=== PATIENT | female | born 1960 | race American Indian/Alaskan Native ===

== ENCOUNTER 2018-04-26 12:11 | Emergency (ER) | payer BC, OTHER ==
[2018-04-26 12:29] VITALS: BP 134/84
--- NOTE | 2018-04-26 14:57 | Emergency Department Report ---
ED Female HPI - General Chief complaint: Vaginal Bleeding Stated complaint: HEAVY MENSTRUAL BLEEDING Time Seen by Provider: 04/26/18 14:42 Source: patient, family Mode of arrival: Ambulatory Limitations: No Limitations - History of Present Illness Initial comments: This is a 58-year-old female complaining of vaginal bleeding since April 03. She states that she is going through us Cipro plus tampon every hour. Patient is still menstruating and she said that she was 11 months without menstruation and then in February he came back and then started again April 03. She said when it stopped and although she went on vacation with her and they had lots of sex. So she still has the ability to get . She is followed by Dr. Guthrie who saw her in the and scheduled her for ultrasound and a biopsy of her endometrium in 05/24/2018. She says she called her today and she told her to come to the emergency room due to heavy menstrual bleeding. Patient having some abdominal cramping to her pelvic area but she said 3/10 and intermittent. She says she is also passing some clots. Denies any dizziness or feeling off fainted. Denies any nausea or vomiting. Denies any back pain or any uterine or burning, frequency or urgency. Patient does have a history of fibroids and she has a history of myomectomy and she said her fibroids came back. She had a history of endometriosis since that she has had several endometrial biopsies in the past. Denies any history of acute blood loss due to heavy vaginal bleeding and period. Complaint: vaginal bleeding Onset/Timin -: days(s) Location: suprapubic Radiation: non-radiating Severity: mild Severity scale (0 -10): 3 Quality: cramping Consistency: intermittent Improves with: none Worsens with: none Are you Now?: No Last Menstrual Period: 04/03/18 EDC: 01/08/19 Associated Symptoms: vaginal bleeding, abdominal pain (abdominal cramping). denies: vaginal discharge, nausea/vomiting, fever/chills, headaches, loss of appetite, dysuria, hematuria, rash, seizure, shortness of breath, syncope, weakness - Related Data Home Medications Medication Instructions Recorded Confirmed Last Taken Progesterone, Micronized 200 mg PO QPM 05/28/13 05/28/13 05/21/13 [Prometrium] Previous Rx's Medication Instructions Recorded Last Taken Type Cyclobenzaprine [Flexeril] 10 mg PO TID PRN #14 tablet 05/28/13 Unknown Rx Ibuprofen [Motrin] 800 mg PO TID PRN #14 tablet 05/28/13 Unknown Rx Naproxen 500 mg PO Q12H #16 tablet 04/26/18 Unknown Rx Allergies Allergy/AdvReac Type Severity Reaction Status Date / Time No Known Allergies Allergy Unverified 05/28/13 04:13 ED Review of Systems ROS: Stated complaint: HEAVY MENSTRUAL BLEEDING Other details as noted in HPI Constitutional: denies: chills, fever Eyes: denies: eye pain, eye discharge, vision change ENT: denies: ear pain, throat pain, congestion Respiratory: denies: cough, shortness of breath, SOB with exertion, SOB at rest , stridor, wheezing Cardiovascular: denies: chest pain, palpitations, dyspnea on exertion, edema, syncope Gastrointestinal: denies: abdominal pain, nausea, diarrhea Genitourinary: abnormal menses. denies: urgency, dysuria, frequency, hematuria , discharge, dyspareunia Musculoskeletal: denies: back pain, joint swelling, arthralgia, myalgia Skin: denies: rash, lesions Neurological: denies: headache, weakness, paresthesias Hematological/Lymphatic: denies: easy bleeding ED Past Medical Hx - Past Medical History Previous Medical History?: Yes Additional medical history: fibroids. carpal tunnel - Surgical History Past Surgical History?: Yes Additional Surgical History: myomectomy - Family History Family history: hypertension - Social History Smoking Status: Never Smoker Substance Use Type: None - Medications Home Medications: Home Medications Medication Instructions Recorded Confirmed Last Taken Type Cyclobenzaprine [Flexeril] 10 mg PO TID PRN #14 tablet 05/28/13 Unknown Rx Ibuprofen [Motrin] 800 mg PO TID PRN #14 tablet 05/28/13 Unknown Rx Progesterone, Micronized 200 mg PO QPM 05/28/13 05/28/13 05/21/13 History [Prometrium] Naproxen 500 mg PO Q12H #16 tablet 04/26/18 Unknown Rx ED Physical Exam - General Limitations: No Limitations General appearance: alert, in no apparent distress - Head Head exam: Present: atraumatic, normocephalic, normal inspection - Eye Eye exam: Present: normal appearance, PERRL, EOMI Pupils: Present: normal accommodation - ENT ENT exam: Present: normal exam, normal orophraynx, mucous membranes moist, TM's normal bilaterally, normal external ear exam - Neck Neck exam: Present: normal inspection, full ROM. Absent: tenderness, lymphadenopathy - Respiratory Respiratory exam: Present: normal lung sounds bilaterally. Absent: respiratory distress, chest wall tenderness - Cardiovascular Cardiovascular Exam: Present: regular rate, normal rhythm, normal heart sounds. Absent: systolic murmur, diastolic murmur - GI/Abdominal GI/Abdominal exam: Present: soft, normal bowel sounds. Absent: distended, tenderness, guarding, rebound, rigid, organomegaly, mass, bruit, pulsatile mass , hernia - Extremities Exam Extremities exam: Present: normal inspection, full ROM, normal capillary refill , other (No cce. + 2 pulses in all extremities, no neurovascular compromise). Absent: tenderness, pedal edema, joint swelling, calf tenderness - Back Exam Back exam: Present: normal inspection, full ROM, other (ambulates without any difficulties). Absent: tenderness, CVA tenderness (R), CVA tenderness (L), muscle spasm, paraspinal tenderness, vertebral tenderness, rash noted - Neurological Exam Neurological exam: Present: alert, oriented X3, normal gait, reflexes normal. Absent: motor sensory deficit - Psychiatric Psychiatric exam: Present: normal affect, normal mood - Skin Skin exam: Present: warm, dry, intact, normal color. Absent: rash ED Course Vital Signs 04/26/18 12:24 Temperature 98.5 F Pulse Rate 75 Respiratory 16 Rate Blood Pressure 134/84 O2 Sat by Pulse 100 Oximetry - Reevaluation(s) Reevaluation #1: 04/26/18 16:03 Patient BMP is stable test is negative. Awaiting other lab work. She is awaiting an ultrasound pelvic complaints. Abdominal is nontender at present. Patient has no nausea and she is stable Reevaluation #2: 04/26/18 18:47 Patient states educated on preliminary ultrasound report. No acute findings ED Medical Decision Making - Lab Data Result diagrams: 04/26/18 15:08 04/26/18 15:08 Lab Results 04/26/18 04/26/18 04/26/18 Range/Units 15:08 15:08 15:08 WBC 4.9 (4.5-11.0) K/mm3 RBC 3.98 (3.65-5.03) M/mm3 Hgb 12.1 (10.1-14.3) gm/dl Hct 36.0 (30.3-42.9) % MCV 90 (79-97) fl MCH 30 (28-32) pg MCHC 34 (30-34) % RDW 15.0 (13.2-15.2) % Plt Count 200 (140-440) K/mm3 Lymph % (Auto) 28.5 (13.4-35.0) % Schleicher % (Auto) 7.1 (0.0-7.3) % Eos % (Auto) 1.4 (0.0-4.3) % Baso % (Auto) 0.5 (0.0-1.8) % Lymph # 1.4 (1.2-5.4) K/mm3 Schleicher # 0.3 (0.0-0.8) K/mm3 Eos # 0.1 (0.0-0.4) K/mm3 Baso # 0.0 (0.0-0.1) K/mm3 Seg Neutrophils % 62.5 (40.0-70.0) % Seg Neutrophils # 3.0 (1.8-7.7) K/mm3 Sodium 141 (137-145) mmol/L Potassium 3.6 (3.6-5.0) mmol/L Chloride 103.0 (98-107) mmol/L Carbon Dioxide 29 (22-30) mmol/L Anion Gap 13 mmol/L BUN 5 L (7-17) mg/dL Creatinine 0.7 (0.7-1.2) mg/dL Estimated GFR > 60 ml/min BUN/Creatinine Ratio 7 % Glucose 92 (65-100) mg/dL Calcium 9.3 (8.4-10.2) mg/dL HCG, Qual Negative (Negative) - Radiology Data Radiology results: report reviewed interpreted by me: Preliminary ultrasound reports. Exam was limited. Patient has lots of small fibroids and lower segments vascular mass abnormal versus benign. 4.7 cm. Ovaries are normal. Endometrial thickness is 12 mm. - Medical Decision Making This is a 58-year-old female here reports that she is having heavy vaginal bleeding with minimal abdominal cramping and she has been followed by Dr. Guthrie will plan to do endometrial biopsy on 05/24/2018. Diagnostics: Preliminary pelvic ultrasound complete and preliminary report shows 6.1 x 5 x 4.7 cm vascular mass benign versus abnormal. She also have lots of small fibroids. Ovaries are normal and endometrial lining is normal. Final report to be read by radiologist. CBC and BMP is stable and urinalysis stable, test is negative Assessment/plan Dysfunctional uterine bleeding -I discussed ultrasound result with patient and she has an appointment with Dr. Guthrie but I told her to call Dr. Guthrie tomorrow to let her know that she had ultrasound and to see if she could look at it and see if she needs to come in earlier. Started on naproxen Abdominal cramping-cent pelvic cramping in his minimal and she is not having any at present. 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 She will call Dr. Guthrie in the morning to let her know that she had ultrasound done. Patient has biopsy scheduled on 05/24/[address] Guthrie. She remained stable throughout ED course. She was discharged home with her and with prescription for naproxen Critical care attestation.: If time is entered above; I have spent that time in minutes in the direct care of this critically ill patient, excluding procedure time. ED Disposition Clinical Impression: Dysfunctional uterine bleeding, Pelvic pain, Uterine mass Disposition: DC-01 TO HOME OR SELFCARE Is pt being admited?: No Does the pt Need Aspirin: No Condition: Stable Instructions: Dysfunctional Uterine Bleeding (ED), Uterine Fibroids (ED), Abdominal Pain (ED) Additional Instructions: Please call Dr. Guthrie office in the morning to schedule an appointment and let her know that he had an ultrasound done today in the hospital. Take naproxen as discussed Increase her fluid intake If he develops, dizziness, shortness of breath, chest pain and increased vaginal bleeding that is not controlled, please return to emergency room Prescriptions: Naproxen 500 mg PO Q12H #16 tablet Referrals: CARMEL GUTHRIE MD [Staff Physician] - 04/27/18 PRIMARY CARE, [Primary Care Provider] - 04/27/18 Forms: Work/School Release Form(ED)
[2018-04-26 15:45] LABS: BUN/Creatinine Ratio 7; Blood Urea Nitrogen 5 mg/dL (7-17); Calcium 9.3 mg/dL (8.4-10.2); Hemolysis Index 1
[2018-04-26 15:58] LABS: Basophils % (Auto) 0.5 % (0.0-1.8); Eosinophils # (Auto) 0.1 K/mm3 (0.0-0.4); Eosinophils % (Auto) 1.4 % (0.0-4.3); Hemoglobin 12.1 gm/dl (10.1-14.3); Lymphocytes # (Auto) 1.4 K/mm3 (1.2-5.4); Lymphocytes % (Auto) 28.5 % (13.4-35.0); Mean Corpuscular HGB Conc 34 % (30-34); Mean Corpuscular Hemoglobin 30 pg (28-32); Mean Corpuscular Volume 90 fl (79-97); Monocytes # (Auto) 0.3 K/mm3 (0.0-0.8); Monocytes % (Auto) 7.1 % (0.0-7.3); Platelet Count 200 K/mm3 (140-440); Red Blood Count 3.98 M/mm3 (3.65-5.03)
[2018-04-26 22:08] LABS: Bilirubin,Urine NEG (Negative); Blood,Urine MOD (Negative); Color,Urine Yellow (Yellow); Mucus,Urine FEW /HPF; Protein,Urine <15 mg/dL mg/dL (Negative); Urobilinogen,Urine < 2.0 mg/dL (<2.0)
--- NOTE | 2018-04-27 08:12 | Ultrasound Report ---
ULTRASOUND PELVIC COMPLETE HISTORY: Heavy vaginal bleeding, mild pelvic cramping for month. COMPARISON: None. TECHNIQUE: Transabdominal ultrasound with color doppler interrogation. FINDINGS: Uterus: The uterus is anteverted. The uterus is mildly enlarged measuring 12 x 5 x 6 cm. A large exophytic fibroid projects laterally from the right inferior uterine wall. The fibroid measures 6.1 x 5.0 x 4.7 cm. This fibroid appears predominantly solid, no calcifications and trace internal flow. There are a few additional subcentimeter intramural fibroids in the anterior and posterior melendrez. No large submucosal fibroid. Endometrium: 12 mm. Right ovary: 2.5 x 2.0 x 2.6 cm. No focal abnormality. Left ovary: 3.2 x 1.3 x 2.5 cm. No focal abnormality. No pelvic fluid or mass is identified. Normal color doppler interrogation. IMPRESSION: Uterine fibroid disease as described.
== END 2018-04-26 19:08 | disposition home or self-care (01) ==
LOC: ED 12:11
DX: N93.8 Other specified abnormal uterine and vaginal bleeding (principal); R10.2 Pelvic and perineal pain; R19.09 Other intra-abdominal and pelvic swelling, mass and lump
CPT/HCPCS: 36415; 76856; 80048; 81001; 84703; 85025

== ENCOUNTER 2018-09-08 05:51 | Observation (INO) | payer BC ==
[2018-08-16 12:35] LABS: Basophils # (Auto) 0.1 K/mm3 (0.0-0.1); Basophils % (Auto) 1.2 % (0.0-1.8); Eosinophils % (Auto) 0.5 % (0.0-4.3); Hematocrit 33.6 % (30.3-42.9); Hemoglobin 10.4 gm/dl (10.1-14.3); Lymphocytes # (Auto) 1.2 K/mm3 (1.2-5.4); Lymphocytes % (Auto) 23.7 % (13.4-35.0); Mean Corpuscular HGB Conc 31 % (30-34); Mean Corpuscular Volume 76 fl (79-97); Monocytes # (Auto) 0.3 K/mm3 (0.0-0.8); Monocytes % (Auto) 5.6 % (0.0-7.3); Platelet Count 321 K/mm3 (140-440); Red Blood Count 4.42 M/mm3 (3.65-5.03); Red Cell Distribution Width 17.6 % (13.2-15.2)
--- NOTE | 2018-08-21 12:33 | History and Physical Report ---
History of Present Illness Date of examination: 08/16/18 History of present illness: This is a 58 years old female who presents with menstrual disorder. No period for 1year. Then 03/03/18 she had light bleeding like a regualr cycle [id number]. Has spotting again 04/03/2018 that was intermittently heavy. She complains of irregular menses and heavy bleeding. She complains of history of fibroids, but denies dysmenorrhea, history of ovarian cysts, history of thyroid disease, history of PCOS, history of bleeding disorder, lightheadedness, fatigue and cramping. States she had an US ~2years ago by Dr. Aileen Chery that reveals fibroids and ovarian cyst. She had an EMB 04/2018 that revealed:POLYPOID FRAGMENTS OF PROLIFERATIVE TYPE ENDOMETRIUM, SUGGESTIVE OF BENIGN ENDOMETRIAL POLYPS.- NO HYPERPLASIA OR CARCINOMA. Pap smear was negative for HPV. TVUS showed a right complexed ovarian cyst stable since 2012. She's had persistent intermittent bleeding and desires to proceed with hysterectomy with removal of both tubes and ovaries. 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 Ángel Perez (R) ovarian biopsy ~29 years ago Abnormal PAP: positive Infection History HIV Risk Eval: no Hx of STD: None Active Medications (reviewed today): IBUPROFEN 800 MG ORAL TABLET (IBUPROFEN) 1 po TID (PRN) OXYCODONE-ACETAMINOPHEN 5-325 MG ORAL TABLET (OXYCODONE-ACETAMINOPHEN) 1-2po q6h Current Allergies (reviewed today): No known allergies Past Medical History: Mitral valve prolapse Past Surgical History: Myomectomy hysteroscopic (2013) Tubal Ligation (1996) Breast Surgery: (2015) (L), mass removed (R) Dr. Ángel Perez (R) ovarian biopsy ~29 years ago Social History: Reviewed history from 04/20/2018 and no changes required: Patient is Smoking History: Patient is a former smoker. Risk Factors: Smoked Tobacco Use: Former smoker Smokeless Tobacco Use: Former Passive smoke exposure: no Drug use: no HIV high-risk behavior: no Seatbelt use: 100 % Mammogram History: Date of Last Mammogram: 08/16/2018 Results: 2017 PAP Smear History: Date of Last PAP Smear: 04/20/2018 Physical Exam Appearance: well developed, well nourished, no acute distress Other Exams Lungs: no rales, rhonchi, or wheezes Heart: S1, S2, no murmur, rub, or gallop Abdomen: soft, non-tender Abdomen: soft, non-tender Genitourinary Exam Vulva: normal, no lesions or discharge Urethral meatus: normal size and location, no lesions or discharge Urethra: no discharge Bladder: no cystocele Vagina: normal appearance, no discharge, lesions. No evidence of cystocele or rectocele. Cervix: normal appearance, no lesions, no discharge Uterus: fixed, enlarged, 10-12 weeks, deviated to left Adnexa: no masses or tenderness Rectal exam: hemorrhoids Impression & Recommendations: Problem # 1: Postmenopausal Bleeding (ICD-627.1) (CPC60-F20.0) Diagnosis explained to patient. Discussed with patient various medical, surgical and radiological therapies common for treatment including, but not limited to, myomectomy, hysterectomy and uterine artery embolization. Discussed risks and benefits of laparotomy, laparoscopy, vaginal and robotic assisted approaches for hysterectomies. Patient desires definitive treatment in the form of robot as sisted laparoscopic total hysterectomy. The risks and alternatives for this surgery were reviewed with the patient. She was informed of the risks of the surgery including, but not limited to, pain, infection, bleeding possibly heavy enough to require a blood transfusion with associated risks of infections (hepatitis and HIV) and transfusion reactions, possible damage to bowel, bladder or ureter(s). Patient understands that this surgery with make her sterile. Indications to abort a robotic/laparoscopic procedure and perform an open procedure were explained. Patient understands if her ovaries are removed she will become menopausal. Patient advised the small risks of spreading of malignancy if morcellation is required during the surgery patient understands and approves performing if necessary. Questions answered. Consent reviewed and signed The patient was instructed/informed the following: The normal length of hospital stay for this procedure. Nothing to eat or drink after midnight the evening prior to surgery. Clear liquids the day before surgery. Pre-op instruction sheets given. Wound care instructions given. Problem # 2: Ovarian mass (ICD-625.8) (TQE81-C12.89) Small chance of malignancy discussed. She was informed she may require further surgery should malignancy be found on the pathology report. Problem # 3: Fibroids of uterus; Intramural (ICD-218.1) (BWA83-D69.1) Diagnosis explained to patient . Questions answered. Discussed with patient various medical, surgical and radioloigal therapies common for treatment: Hormonal/medical therapy, fibroid embolization, removal of fibroids or hysterectomy Medications Added to Medication List This Visit: 1) Ibuprofen 800 Mg Oral Tablet (Ibuprofen) .... 1 po tid (prn) 2) Oxycodone-acetaminophen 5-325 Mg Oral Tablet (Oxycodone-acetaminophen) .... 1-2po q6h Prescriptions: IBUPROFEN 800 MG ORAL TABLET (IBUPROFEN) 1 po TID (PRN) #30 x 1 Entered and Authorized by: Lucero Guthrie MD Method used: Print then Give to Patient RxID: [id number] OXYCODONE-ACETAMINOPHEN 5-325 MG ORAL TABLET (OXYCODONE-ACETAMINOPHEN) 1-2po q6h #15 Tablet x 0 Entered and Authorized by: Lucero Guthrie MD Method used: Print then Give to Patient RxID: [id number] Medications and Allergies Allergies Allergy/AdvReac Type Severity Reaction Status Date / Time No Known Allergies Allergy Unverified 08/15/18 13:10 Home Medications Medication Instructions Recorded Confirmed Last Taken Type Norgestimate-Ethinyl Estradiol 1 each PO DAILY 08/15/18 08/15/18 Unknown History [Auq-Uq-Weahudgl Tablet] Active Meds: Active Medications Cefazolin Sodium (Ancef/Sterile Water 2 Gm/20 Ml) 2 gm in 20 mls @ 80 mls/hr IV PREOP NR; Protocol Stop: 08/22/18 23:59 Exam Vital Signs Temp Pulse Resp BP Pulse Ox 99.2 F 73 18 150/96 99 08/16/18 12:00 08/16/18 12:00 08/16/18 12:00 08/16/18 12:00 08/16/18 12:00 Results - Labs 08/16/18 12:05 Assessment and Plan - Patient Problems (1) Post-menopausal bleeding Status: Acute (2) Ovarian mass Status: Acute (3) Fibroid Status: Acute
[~2018-09-08 05:51] MED LIST: ANCEF/STERILE WATER 2 GM/20 ML 2 GM/20 ML SYRINGE IV NR
[2018-09-08] MEDS ORDERED: NEURONTIN PO NR (06:00)
[2018-09-08] MEDS ORDERED: VERSED IV NR (06:00)
[2018-09-08] MEDS ORDERED: LACTATED RINGERS 1,000 ML IV SCH (06:00)
[2018-09-08] MEDS ORDERED: TRANSDERM-SCOP TD NR (06:00)
[2018-09-08] MEDS ORDERED: SUBLIMAZE IV PRN (06:00)
[2018-09-08] MEDS ORDERED: NEOSPORIN GU IR ONE ×2 (07:15→08:55)
[2018-09-08] MEDS ORDERED: ANCEF/STERILE WATER 2 GM/20 ML IV NR (07:15)
[2018-09-08] MEDS ORDERED: MARCAINE 0.25% INFILTRATI ONE (07:18)
[2018-09-08] MEDS ORDERED: XYLOCAINE 1% 20 mL ONE (07:18)
[2018-09-08 07:19] LABS: Hematocrit 34.5 % (30.3-42.9); Mean Corpuscular HGB Conc 32 % (30-34); Mean Corpuscular Volume 74 fl (79-97); Platelet Count 235 K/mm3 (140-440); Red Blood Count 4.66 M/mm3 (3.65-5.03); Red Cell Distribution Width 19.1 % (13.2-15.2)
[2018-09-08] MEDS ORDERED: ZEMURON IV ONE (07:28)
[2018-09-08] MEDS ORDERED: DIPRIVAN 10 MG/ML IV ONE (07:28)
[2018-09-08] MEDS ORDERED: DILAUDID ONE (07:28)
[2018-09-08] MEDS ORDERED: XYLOCAINE MPF 2% ONE (07:29)
[2018-09-08] MEDS ORDERED: ANCEF/STERILE WATER 2 GM/20 ML 2 GM/20 ML SYRINGE IV ONE (07:54)
[2018-09-08] MEDS ORDERED: DILAUDID IV PRN ×2 (08:03→11:51)
--- NOTE | 2018-09-08 08:06 | Anesthesia Consultation ---
Anesthesia Consult and Med Hx Date of service: 09/08/18 - Airway Anesthetic Teeth Evaluation: Good ROM Head & Neck: Adequate Mental/Hyoid Distance: Adequate Mallampati Class: Class II Intubation Access Assessment: Probably Good - Pulmonary Exam CTA: Yes - Cardiac Exam Cardiac Exam: RRR - Pre-Operative Health Status ASA Pre-Surgery Classification: ASA2 Proposed Anesthetic Plan: General Nerve Block: TAP - Pulmonary Hx Smoking: No Hx Asthma: No Hx Respiratory Symptoms: No Hx Sleep Apnea: No - Cardiovascular System Hx Hypertension: No Hx Heart Attack/AMI: No Hx Percutaneous Transluminal Coronary Angioplasty (PTCA): No Hx Cardia Arrhythmia: Yes (hx palpitations) - Central Nervous System Hx Seizures: No CVA: No - Gastrointestinal Hx Gastroesophageal Reflux Disease: Yes (asymptomatic today) - Endocrine Hx Renal Disease: No Hx Liver Disease: No Hx Insulin Dependent Diabetes: No Hx Non-Insulin Dependent Diabetes: No Hx Thyroid Disease: No - Hematic Hx Anemia: Yes (no hx transfusions) - Other Systems Hx Obesity: No - Additional Comments Anesthesia Medical History Comments: Hx PONV with prior anesthetics.
--- NOTE | 2018-09-08 08:07 | Anesthesia Day of Surgery ---
Anesthesia Day of Surgery - Day of Surgery Patient Examined: Yes Patient H&P Reviewed: Yes Patient is NPO: Yes
[2018-09-08] MEDS ORDERED: THROMBIN (BOVINE) TP ONE ×2 (08:33→08:57)
[2018-09-08] MEDS ORDERED: CALCIUM CHLORIDE IV ONE ×2 (08:33→08:56)
[2018-09-08] MEDS ORDERED: NACL 0.9% IR ONE (08:56)
[2018-09-08] MEDS ORDERED: WATER FOR IRRIG STERILE IR ONE (08:57)
[2018-09-08] MEDS ORDERED: METHYLENE BLUE IV ONE (10:24)
[2018-09-08] MEDS ORDERED: METHYLENE BLUE ONE (10:26)
[2018-09-08] MEDS ORDERED: ROBINUL ONE ×2 (11:10→11:15)
[2018-09-08] MEDS ORDERED: BLOXIVERZ ONE (11:10)
[2018-09-08] MEDS ORDERED: TORADOL ONE (11:11)
[2018-09-08] MEDS ORDERED: ZOFRAN ONE (11:11)
[2018-09-08] MEDS ORDERED: LACTATED RINGERS 1,000 ML ONE (11:13)
[2018-09-08] MEDS ORDERED: ZOFRAN IV PRN ×2 (11:51→14:50)
[2018-09-08] MEDS ORDERED: PERCOCET 5/325 PO PRN (14:50)
[2018-09-08] MEDS ORDERED: ZOFRAN ODT PO PRN (14:50)
[2018-09-08] MEDS ORDERED: TYLENOL PR PRN (14:50)
[2018-09-08] MEDS ORDERED: REGLAN IV PRN (14:50)
[2018-09-08] MEDS ORDERED: MORPHINE IV PRN ×2 (14:50)
[2018-09-08] MEDS ORDERED: TYLENOL PO PRN (14:50)
[2018-09-08] MEDS ORDERED: NACL 0.9% 1000 ML 1,000 ML IV SCH (14:50)
[2018-09-08] MEDS ORDERED: REGLAN PO PRN (14:50)
--- NOTE | 2018-09-08 15:38 | Post Anesthesia Evaluation ---
- Post Anesthesia Evaluation Patient Participated: Yes Airway Patent: Yes Stable Respiratory Function: Yes Nausea/Vomiting: No Temp > 96.8F: Yes Pain Manageable: Yes Adequeate Hydration: Yes Anesthesia Complications: No Block Receding Appropriately: Not Applicable Patient on Ventilator: No
[2018-09-08] MEDS: TORADOL IV SCH ×2 (16:57→23:13)
--- NOTE | 2018-09-08 18:51 | Operative Report ---
Operative Report Operative Report: Date: 09/08/2018 Preoperative diagnosis: 1. Postmenopausal bleeding 2. Ovarian mass 3. Uterine fibroid Postoperative diagnosis: 1. Postmenopausal bleeding 2. Pelvic mass 3. Uterine fibroid Procedure: Robotic-assisted laparoscopic total hysterectomy with bilateral salpingo-oophorectomy Surgeon: Lucero Guthrie MD Molding Plasterer: Katt Morris Anesthesiologist: Dr. Baxter Anesthesia: General endotracheal anesthesia EBL: Approximately 100 mL Findings: Uterus is sounded to 8 cm. Multiple uterine fibroids were noted involving the uterus. Grossly normal ovaries. Interrupted tubes consistent with previous tubal ligation. Large right posterior mass attached to the uterus and cervix. Procedure: Patient was taken to the OR and placed in the supine position. General anesthesia was induced and an oral gastric tube was placed. Her neck and head were placed on foam support. Foam eye protection with goggles were secured in place. Then foam face protection was placed and secured. Foam shoulder pads were then positioned on her shoulders for Trendelenburg pos itioning. She was then placed in dorsolithotomy position. The abdomen and vagina were then prepped and draped in the usual sterile fashion. Timeout was performed. A Gill catheter was inserted into the bladder with drainage of clear yellow urine. The operative speculum was introduced into the vagina and the anterior lip of the cervix was grasped with single-toothed tenaculum. The uterus was sounded to 8 cm. The cervix was progressively dilated to allow the large V care uterine manipulator. The bulb of the manipulator was inflated and the speculum and tenaculum were removed. The cup of the manipulator was placed around the cervix and the blue occluder of the manipulator was properly positioned in the vagina. A laparotomy sponge that was saturated with a solution of polymyxin and saline was placed in the vagina to ensure pneumoperitoneum. Sterile gloves were placed and attention was turned to the abdomen. A 10 mm vertical supraumbilical incision was made approximately 10 cm superior to the elevated fundus of the uterus. A 10 mm trocar with the laparoscope and camera attached was introduced through this incision under direct visualization. The abdomen was insufflated. No obvious bowel, bladder, ureteral, or major vascular injury was noted. The patient was then placed in steep Trendelenburg position and the following trochars were placed under direct visualization: 8 mm robotic trochars were placed through incisions made in the bilateral midclavicular lower abdominal region approximately 10 cm lateral and approximately 2 cm below the midline incision, and a 5 mm trocar was placed through an incision made in the right lower lateral pelvis approximately 2 cm superior to the iliac crest. The 10 mm laparoscope was then replaced by a 5 mm laparoscope that was placed through the 5 millimeter lateral trocar. The 12 mm trocar was then removed in the Seamus Messer fascial closure device was placed through the incision and a 0 Vicryl was placed through the fascia. Once the suture was secured the 12 mm trocar was reintroduced. Once the trochars were in the appropriate positions, the the da Seng robot system was engaged. The EndoShears and bipolar device was placed through the 8 mm trochars and positioned then attention was turned to the console. The uterus was elevated and bilateral salpingo-oophorectomy was performed. Each tube was removed thr ough the 5 mm trocar and sent to pathology in separate containers. Then the utero-ovarian ligaments were clamped, cauterized and incised bilaterally using 30 W of energy. Then the round ligaments were clamped, cauterized and incised bilaterally. The anterior leaf of the broad ligament was elevated and careful blunt and sharp dissection the bladder flap was created and dissected away from the lower uterine segment and cervix. The posterior leaf of the broad ligament was dissected away from the left uterine vessels. The mass was carefully dissected away from the pelvic sidewall. During the dissection care was taken to follow course of the ureter on the right. The mass was shelled out of its wall and at this point determined to be attached to the posterior aspect of the uterus and cervix. With anatomy restored, the cup of the uterine manipulator was palpated both anteriorly and posteriorly. Course of the ureters was visualized and was confirmed to be away from the operative field on the left and appeared to take a normal forced down into the bladder on the right. The uterine vessels were then clamped and cauterized bilaterally. Blanching of the uterus was then noted. Attention was again turned to the anterior lower uterine segment and the bladder was confirmed to be away from the operative field. Then attention was turned again to the posterior where the cup of the manipulator was palpated and a colpotomy was performed down to the cup. The incision was extended in the lateral position the uterine vessels that were again clamped and cauterized and incised. Continuing along the cup of the manipulator in a circumferential manner the colpotomy was completed. At this point the mass was dissected away from the posterior aspect of the uterus. The uterus and cervix were then removed through the vaginal incision. The mass with both tubes and ovaries were then removed through the vagina. The pelvis was irrigated with warm normal saline. A moist laparotomy sponge was placed in the vagina to maintain pneumoperitoneum. The vagina cuff was reapproximated using V LOC 180 suture in a simple running stitch. Then a J stitch was performed to secure the suture. Again the pelvis was copiously irrigated with polymixin in warm normal saline. The laparotomy sponge was removed from the vagina. No bowel, bladder, ureteral or major vascular injury was noted. Methylene blue was given IV by anesthesia. There was no obvious evidence of methylene blue in the pelvis at the end of the procedure. Once hemostasis was noted, platelet rich plasma was applied to the operative field to ensure hemostasis. Then platelet poor plasma was applied to the operative field to decrease formation of adhesions. Again hemostasis was noted. Grossly normal appendix was noted. Then the instruments were removed, the robot was disengaged. The 10 mm trocar was removed and the fascia was ligated with the 0 Vicryl suture that was placed at the beginning of the procedure. The patient was taken out of Trendelenburg position, the abdomen was desufflated, the remaining trochars were removed. Incisions were reapproximated using 4-0 Vicryl in a subcuticular manner. Surgiseal was placed over the incisions. The vagina was then inspected, no bleeding was noted and clear yellow urine was draining into the Gill bag from the bladder at the end of the procedure. Patient was taken to recovery room in stable condition.
[2018-09-08] MEDS: ANCEF/NS 1 GM/50 ML 1 GM/50 ML BAG IV SCH (19:50)
[2018-09-09 05:02] LABS: Hematocrit 28.6 % (30.3-42.9)
[2018-09-09] MEDS: TORADOL IV SCH ×2 (05:22→11:54)
[2018-09-09] MEDS: ANCEF/NS 1 GM/50 ML 1 GM/50 ML BAG IV SCH (05:22)
[2018-09-09] MEDS ORDERED: PROTONIX IV SCH (10:00)
--- NOTE | 2018-09-09 11:19 | Discharge Summary ---
Providers - Providers Date of Admission: 09/08/18 11:29 Date of discharge: 09/09/18 Attending physician: CARMEL GALLO Primary care physician: JAUN AYALA Hospitalization Reason for admission: postmenopausal bleeding Condition: Good Procedures: Please see operative note robotic-assisted total hysterectomy Hospital course: Patient was admitted and underwent above procedure without complications. Her post operative course was benign she was afebrile throughout. Patient postoperative day 1 hematocrit was in an acceptable range. Patient had no orthostatic symptoms. Patient was tolerating regular diet and voiding without difficulty at time of discharge. Patient incision was healing well without evidence of infection. Disposition: DC-01 TO HOME OR SELFCARE - Discharge Diagnoses (1) Fibroid Status: Resolved (2) Ovarian mass Status: Resolved (3) Post-menopausal bleeding Status: Resolved Core Measure Documentation - Palliative Care Palliative Care/ Comfort Measures: Not Applicable - Core Measures Any of the following diagnoses?: none Exam - Constitutional Vitals: Temp Pulse Resp BP Pulse Ox 98.5 F 68 18 99/54 98 09/09/18 07:15 09/09/18 07:15 09/09/18 07:15 09/09/18 07:15 09/09/18 05:35 General appearance: Present: no acute distress - Respiratory Respiratory effort: normal - Cardiovascular Rhythm: regular - Extremities Extremities: no ischemia - Abdominal General gastrointestinal: Present: soft, distended (Slightly) Female genitourinary: Present: deferred - Integumentary Integumentary: Present: clear, warm, dry - Psychiatric Psychiatric: appropriate mood/affect, intact judgment & insight - Neurologic Neurologic: moves all extremities Plan Activity: advance as tolerated Diet: regular Wound: open to air Additional Instructions: Patient instructed no heavy lifting for 4 weeks. No intercourse for 8 weeks. Call office for fever, chills, nausea, vomiting or pain not controlled by pain medications. Ambulation is encouraged. Patient's call for heavy vaginal bleeding. Patient instructed to keep her scheduled post operative office appointment. Follow up with: JAUN AYALA MD [Primary Care Provider] - 7 Days
[2018-09-09 11:59] VITALS: BP 111/55
== END 2018-09-09 12:50 | disposition home or self-care (01) ==
LOC: OR 05:51 → OB 11:29
PROVIDERS: ADMIT Obstetrics & Gynecology; ATTEND Obstetrics & Gynecology
DX: N95.0 Postmenopausal bleeding (principal); N83.9 Noninflammatory disorder of ovary, fallopian tube and broad ligament, unspecified; D25.9 Leiomyoma of uterus, unspecified
CPT/HCPCS: 36415; 58571; 64450; 81025; 85014; 85018; 85025; 85027; 86850; 86900; 86901; 88302; 88305; 88307; 93005; 93010; 96365; 96366; 96375; 96376; A4217; C9113; G0378; J0690; J1170; J1885; J2250; J2405; J2704; J2710; J3010; J7030; J7120; Q9968; S2900; 88341; 88342; 96374

== ENCOUNTER 2018-10-01 19:47 | Emergency (ER) | payer BC ==
[2018-10-01 19:58] VITALS: BP 179/91
[2018-10-01 20:31] LABS: Basophils % (Auto) 1.1 % (0.0-1.8); Eosinophils # (Auto) 0.1 K/mm3 (0.0-0.4); Eosinophils % (Auto) 2.2 % (0.0-4.3); Hematocrit 34.4 % (30.3-42.9); Hemoglobin 11.1 gm/dl (10.1-14.3); Lymphocytes # (Auto) 1.9 K/mm3 (1.2-5.4); Lymphocytes % (Auto) 40.6 % (13.4-35.0); Mean Corpuscular HGB Conc 32 % (30-34); Mean Corpuscular Volume 74 fl (79-97); Monocytes # (Auto) 0.4 K/mm3 (0.0-0.8); Monocytes % (Auto) 8.1 % (0.0-7.3); Platelet Count 372 K/mm3 (140-440); Red Blood Count 4.66 M/mm3 (3.65-5.03)
[2018-10-01] MEDS ORDERED: SILVER NITRATE TP ONE (21:03)
--- NOTE | 2018-10-01 21:27 | Emergency Department Report ---
ED Female HPI - General Chief complaint: Vaginal Bleeding Stated complaint: POST HYSTERECTOMY/PASSING BLOOD CLOTS Time Seen by Provider: 10/01/18 20:32 Source: patient Mode of arrival: Ambulatory Limitations: No Limitations - History of Present Illness Initial comments: 58-year-old female with a past medical history of uterine fibroids and ovarian tumor status post total hysterectomy on September 08 presents complaining of worsening vaginal bleeding. She has had vaginal spotting with clotting since 3 PM this afternoon she has had bright red blood with clots. She complains of a mild pulling sensation in the suprapubic area without significant pain. She took Motrin prior to arrival with improvement. She's used about 3-4 pads today but they have not been saturated before changing it. Denies fevers or dizziness. Previous medical records were reviewed and patient received a total hysterectomy with bilateral salpingo-oophorectomy. PRODUCTION GRADER: Dr. Guthrie - Related Data Home Medications Medication Instructions Recorded Confirmed Last Taken Norgestimate-Ethinyl Estradiol 1 each PO DAILY 08/15/18 08/15/18 Unknown [Ivl-Lo-Ngaizspd Tablet] Allergies Allergy/AdvReac Type Severity Reaction Status Date / Time No Known Allergies Allergy Verified 10/01/18 19:58 ED Review of Systems ROS: Stated complaint: POST HYSTERECTOMY/PASSING BLOOD CLOTS Other details as noted in HPI Comment: All other systems reviewed and negative ED Past Medical Hx - Past Medical History Previous Medical History?: Yes Hx Hypertension: No Hx Heart Attack/AMI: No Hx Congestive Heart Failure: No Hx Diabetes: No Hx Liver Disease: No Hx Renal Disease: No Hx Seizures: No Hx Asthma: No Hx COPD: No Additional medical history: fibroids. carpal tunnel. mitral valve prolapse - Surgical History Past Surgical History?: Yes Additional Surgical History: myomectomy. ovarian turmor removed. hyster - Social History Smoking Status: Never Smoker Substance Use Type: None - Medications Home Medications: Home Medications Medication Instructions Recorded Confirmed Last Taken Type Norgestimate-Ethinyl Estradiol 1 each PO DAILY 08/15/18 08/15/18 Unknown History [Clj-Qs-Nugkncud Tablet] ED Physical Exam - General Limitations: No Limitations - Other Other exam information: General: No limitations, patient is alert in no acute distress Head exam: Atraumatic, normocephalic Eyes exam: Normal appearance ENT: Moist mucous membrane Neck exam: Normal inspection, full range of motion, no meningismus nontender Respiratory exam: Clear to auscultation bilateral, no wheezes, rales, crackles Cardiovascular: Normal rate and rhythm, normal heart sounds Abdomen: Soft, nondistended, and nontender, with normal bowel sounds, no rebo und, or guarding Extremity: Full range of motion normal inspection no deformity Back: Normal Inspection, full range of motion, no tenderness Neurologic: Alert, oriented x3, cranial nerves intact, no motor or sensory deficit Psychiatric: normal affect, normal mood Skin: Warm, dry, intact ED Course Vital Signs 10/01/18 19:56 Temperature 98.3 F Pulse Rate 92 H Respiratory 16 Rate Blood Pressure 179/91 O2 Sat by Pulse 99 Oximetry - Reevaluation(s) Reevaluation #1: 10/01/18 21:00 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 Declines additional meds. 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 No imaging studies rec, will come to examine pt in ed. ED Medical Decision Making - Lab Data Result diagrams: 10/01/18 20:16 Lab Results 10/01/18 10/01/18 Range/Units 20:16 Unknown WBC 4.6 (4.5-11.0) K/mm3 RBC 4.66 (3.65-5.03) M/mm3 Hgb 11.1 (10.1-14.3) gm/dl Hct 34.4 (30.3-42.9) % MCV 74 L (79-97) fl MCH 24 L (28-32) pg MCHC 32 (30-34) % RDW 21.0 H (13.2-15.2) % Plt Count 372 (140-440) K/mm3 Lymph % (Auto) 40.6 H (13.4-35.0) % [place] % (Auto) 8.1 H (0.0-7.3) % Eos % (Auto) 2.2 (0.0-4.3) % Baso % (Auto) 1.1 (0.0-1.8) % Lymph # 1.9 (1.2-5.4) K/mm3 [place] # 0.4 (0.0-0.8) K/mm3 Eos # 0.1 (0.0-0.4) K/mm3 Baso # 0.0 (0.0-0.1) K/mm3 Seg Neutrophils % 48.0 (40.0-70.0) % Seg Neutrophils # 2.2 (1.8-7.7) K/mm3 Urine Color Red (Yellow) Urine Turbidity Clear (Clear) Urine pH 7.0 (5.0-7.0) Ur Specific [place] 1.002 L (1.003-1.030) Urine Protein 100 mg/dl (Negative) mg/dL Urine Glucose (UA) Neg (Negative) mg/dL Urine Ketones Neg (Negative) mg/dL Urine Blood Lg (Negative) Urine Nitrite Neg (Negative) Urine Bilirubin Neg (Negative) Urine Urobilinogen < 2.0 (<2.0) mg/dL Ur Leukocyte Esterase Neg (Negative) Urine WBC (Auto) 1.0 (0.0-6.0) /HPF Urine RBC (Auto) 9.0 (0.0-6.0) /HPF - Medical Decision Making Dr mendes came to eval pt. She placed silver nitrate at area of interior vag tear at and source of bleeding (see her note) pt has f/u scheduled with Dr. Guthrie tomorrow morning - Differential Diagnosis anemia, postop bleeding Critical Care Time: No Critical care attestation.: If time is entered above; I have spent that time in minutes in the direct care of this critically ill patient, excluding procedure time. ED Disposition Clinical Impression: Postoperative hemorrhage of vagina, Status post total hysterectomy and bilateral salpingo-oophorectomy Disposition: TO HOME OR SELFCARE Is pt being admited?: No Does the pt Need Aspirin: No Condition: Stable Instructions: Postoperative Bleeding (ED) Additional Instructions: Follow up with your doctor or the clinic/doctor provided. Return if symptoms worsen as indicated by your discharge instructions Referrals: CARMEL GUTHRIE MD [Staff Physician] - 10/02/18 Time of Disposition: 22:28
[2018-10-01 21:47] LABS: Bilirubin,Urine NEG (Negative); Blood,Urine LG (Negative); Color,Urine Red (Yellow); Urobilinogen,Urine < 2.0 mg/dL (<2.0)
--- NOTE | 2018-10-01 22:36 | Consultation ---
History of Present Illness Consult date: 10/01/18 Requesting physician: ALISHA ESPAÑA Reason for consult: other (vaginal bleeding after RATH) History of present illness: Pt with new onset of bright read blood per vaginal with passage of clots starting at 3pm. No fever, no chills, nausea or vomiting. 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&P) Family/Genetic History: denies: other (see H&P) Social history: no significant social history, Medications and Allergies Allergies Allergy/AdvReac Type Severity Reaction Status Date / Time No Known Allergies Allergy Verified 10/01/18 19:58 Home Medications Medication Instructions Recorded Confirmed Last Taken Type Norgestimate-Ethinyl Estradiol 1 each PO DAILY 08/15/18 08/15/18 Unknown History [Dpo-Ea-Zugnlhws Tablet] - Vital Signs Vital signs: Vital Signs Temp Pulse Resp BP Pulse Ox 98.3 F 92 H 16 179/91 99 10/01/18 19:56 10/01/18 19:56 10/01/18 19:56 10/01/18 19:56 10/01/18 19:56 Temp Pulse Resp BP Pulse Ox 98.3 F 92 H 16 179/91 99 10/01/18 19:56 10/01/18 19:56 10/01/18 19:56 10/01/18 19:56 10/01/18 19:56 - Physical Exam Genitourinary (Female): Positive: other (moderate blood in the vault which was removed. a 1-1.5cm area noted to be bleeding that seem superficial. cuff seems intact with q tip not passing past the incision line.Bleeding noted to be minimal but steady. Silver nitrate was applied as well as pressure with complete resolution of the bleeing. There is no active bleeding at time of completion of vaginal exam. Pt has no tenderness on exam.) Vagina: Positive: other (see above) Results Result Diagrams: 10/01/18 20:16 Abnormal lab results 10/01/18 10/01/18 Range/Units 20:16 Unknown MCV 74 L (79-97) fl MCH 24 L (28-32) pg RDW 21.0 H (13.2-15.2) % Lymph % (Auto) 40.6 H (13.4-35.0) % [place] % (Auto) 8.1 H (0.0-7.3) % Ur Specific [place] 1.002 L (1.003-1.030) All other labs normal. Assessment and Plan - Patient Problems (1) Postoperative vaginal bleeding Current Visit: Yes Status: Acute Plan to address problem: -bleeding resolved with the above treatment -pt given bleeding precautions. If bleeding returns pt is to call this provider immediately -appears to be superficial and cuff appears intact -Pt has appointment with Dr. Guthrie in the am @ 0900 and she is aware of pt being seen in the ED and treatment applied and agrees with plan of care at this point. -all questions were addressed and answered.
== END 2018-10-01 22:56 | disposition home or self-care (01) ==
LOC: ED 19:47
DX: N99.820 Postprocedural hemorrhage of a genitourinary system organ or structure following a genitourinary system procedure (principal); Z98.890 Other specified postprocedural states; Z90.710 Acquired absence of both cervix and uterus; Z90.722 Acquired absence of ovaries, bilateral
CPT/HCPCS: 36415; 81001; 85025; 99283

== ENCOUNTER 2021-06-24 07:48 | Outpatient (CLI) | payer BC | END 2021-06-24 07:49 | disposition home or self-care (01) | LOC: MAMMO 07:48 | PROVIDERS: ATTEND Internal Medicine | DX: Z12.31 Encounter for screening mammogram for malignant neoplasm of breast (principal) | CPT/HCPCS: 77067 ==